=== PATIENT | female | born 1965 | race Two or more races ===

== ENCOUNTER 2024-07-14 05:20 | Day surgery (SDC) | payer OTHER ==
[2024-07-08 10:17] LABS: PH,URINE 5.5 (5.0-8.0); URINE APPEARANCE Cloudy; URINE BILIRRUBIN Negative (NEGATIVE); URINE BLOOD Negative; URINE COLOR Yellow; URINE KETONE Negative (NEGATIVE); URINE LEUKOCYTE Small; URINE NITRATE Negative; URINE PROTEIN Negative (NEGATIVE)
[2024-07-08 10:18] LABS: URINE BACTERIA 5287.3 uL (0.0-1933); URINE EPITHELIAL CELLS 143.5 uL (0.0-38.8); URINE RBC 2.6 uL (0.0-20.8); URINE WBC 379.7 uL (0.0-23.2)
[2024-07-08 10:19] LABS: URINE CAST 0.14 uL (0.0-1.40); URINE GLUCOSE >=1000 MG/DL (NEGATIVE)
[2024-07-08 10:23] VITALS: BP 105/70
[2024-07-08 10:26] LABS: HEMATOCRIT 41.6 % (36.0-45.00); HEMOGLOBIN 13.8 g/dL (12.0-15.00); MEAN CELL VOLUME 96.4 fL (80.00-100.00); MEAN CORPUSCULAR HEMOGLOBIN 31.9 pg (27.00-32.0); PLATELET COUNT 201 K/uL (150-450); RED BLOOD COUNT 4.32 M/uL (4.00-6.00)
[2024-07-08 10:40] LABS: INR 1.02; PARTIAL THROMBOPLASTIN TIME 26.8 SECONDS (22.0-34.0); PROTHROMBIN TIME 11.1 SECONDS (9.0-11.5)
[2024-07-08 11:08] LABS: ALBUMIN 3.6 gm/dL (3.4-5.0); BILIRUBIN TOTAL 0.68 mg/dL (0.3-1.2); CALCIUM 8.8 mg/dL (8.5-10.1); CHOL HDL RATIO 3.2 (0-5.0); CREATININE SERUM 0.65 mg/dL (0.55-1.02); GFR 92.97; GLOBULINA 2.9 G/DL (2.4-3.5); POTASSIUM 4.09 mEq/L (3.5-5.1); TOTAL PROTEIN 6.5 gm/dL (6.4-8.2)
[~2024-07-14] VITALS: Ht 327.7 cm; Wt 63.5 kg
[~2024-07-14 05:20] MED LIST: ANAPROX275 MG; IBANDRONATE SO150 MG PO; JARDIANCE PO; NABUMETONE500 MG PO; NEURONTIN300 MG PO; PERCOCET 5/3251 TAB PO; PREMPRO 0.45-11 EACH PO; RELPAX40 MG; TRIJARDY XR 101 EACH PO; ZESTRIL2.5 MG PO
[2024-07-14] MEDS ORDERED: CEFAZOLIN SODIUM 1,000 MG VIAL IV ONE (13:00)
[2024-07-14] MEDS ORDERED: CEFADROXIL500 MG PO (13:57)
[2024-07-14] MEDS ORDERED: PERCOCET 5-3251 EACH PO (13:57)
[2024-07-14] MEDS ORDERED: ALEVE220 M1 PO (13:57)
[2024-07-14] MEDS ORDERED: MORPHINE SULFATE 4 MG/ML VIAL IV ONE ×2 (14:25→15:20)
== END 2024-07-14 17:00 | disposition home or self-care (01) ==
LOC: CIR.AMB 05:20
PROVIDERS: ATTEND Orthopaedic Surgery
DX: S52.031A Displaced fracture of olecranon process with intraarticular extension of right ulna, initial encounter for closed fracture (principal); M80.00XA Age-related osteoporosis with current pathological fracture, unspecified site, initial encounter for fracture
CPT/HCPCS: 24685; 20902; L8699

== ENCOUNTER 2025-02-25 08:49 | Emergency (ER) | payer OTHER ==
[~2025-02-25] VITALS: Ht 167.6 cm; Wt 66.2 kg
[~2025-02-25 08:49] MED LIST changes: +ALEVE220 M1 PO; +CEFADROXIL500 MG PO; +PERCOCET 5-3251 EACH PO
[2025-02-25 09:36] VITALS: BP 108/68; O2SAT 98
[2025-02-25] MEDS ORDERED: ZETIA10 MG PO (09:42)
[2025-02-25 10:32] LABS: BASO % 0.2 % (0.1-1.2); EOS # 0.00 (0.04-0.54); EOS % 0.0 % (0.7-7.0); LYMPH # 1.68 (1.18-3.74); LYMPH % 17.5 % (19.3-53.1); MEAN PLATELET VOLUME 9.80 fl (9.4-12.4); MONO # 0.37 (0.24-0.82); MONO % 3.8 % (4.7-12.5); NEUT # 7.49 (1.56-6.13); NEUT % 77.9 % (34.0-71.1); RED CELL DISTRIBUTION WIDTH 12.4 % (11.6-14.4)
[2025-02-25 13:18] LABS: ALT/SGPT 110.0 U/L (12-78); AST/SGOT 56.0 U/L (15-37); BILIRUBIN TOTAL 0.46 mg/dL (0.3-1.2); BUN CREA RATIO 16.0 (7.0-25.0); CREATININE SERUM 0.75 mg/dL (0.55-1.02); GFR 78.82; GLOBULINA 3.8 G/DL (2.4-3.5); GLUCOSE FASTING 138.0 mg/dL (65-100); OSMOLALITY SERUM 281.0 MOSM/KG (275-295)
== END 2025-02-25 14:18 | disposition home or self-care (01) ==
LOC: ER 09:09
PROVIDERS: Emergency Medicine
DX: S09.8XXA Other specified injuries of head, initial encounter (principal); W19.XXXA Unspecified fall, initial encounter; Y93.89 Activity, other specified; Y92.098 Other place in other non-institutional residence as the place of occurrence of the external cause; Y99.8 Other external cause status; R55 Syncope and collapse; I10 Essential (primary) hypertension; E11.9 Type 2 diabetes mellitus without complications; Z79.84 Long term (current) use of oral hypoglycemic drugs; Z88.8 Allergy status to other drugs, medicaments and biological substances; Z91.018 Allergy to other foods